=== PATIENT | female | born 1955 | race Caucasian/White ===

== ENCOUNTER 2021-04-06 16:55 | Emergency (ER) | payer BC ==
--- OUTSIDE RECORDS SUMMARY | 2021-04-06 16:58 | XMS REPORT | Continuity of Care Document ---
:1955 Author Organization [facility] t Address [address] [place] [address] Care Team Providers Name Role Phone Bam Hill MD Primary Care Physician BRIJESH Attending Clinician Unavailable Shonda STOCK Attending Clinician SHONDA Attending Clinician Unavailable Katelyn HANDLEY Attending Clinician Unavailable Payers Payer Name Policy Type Policy Number Effective Date Expiration Date S ource Problems Condition Condition Condition Status Onset Resolution Last Treating Co mments Source Name Details Category Date Date Treatment Clinician Date Atypical Atypical Disease Active Unive rs chest pain chest pain 8-27 it y of 00:00: [address] Obesity Obesity Disease Active 2016-03 Univers (BMI (BMI 1-03 ity of 30-39.9) 30-39.9) 00:00: [address] Atrial Atrial Disease Active 2016-03 Univers fibrillati fibrillati -03 it y of on with on with 00:: [place] RVR RVR [facility] Snores Snores Disease Active 2016-03 Univers 03 ity of 00:00: [address] TSH TSH Disease Active 2016-03 Univers elevation elevation 03-04 ity of 00:00: [address] HTN HTN Disease Active 2016-03 Univers (hypertens (hypertens -03 it y of ion) ion) 00:00: [address] PAF PAF Disease Active 2016-03 Univers (paroxysma (paroxysma 03-04 it y of l atrial l atrial 00:00: [place] fibrillati fibrillati 00 Me dical on) on) Branch Allergies, Adverse Reactions, Alerts Allergy Allergy Status Severity Reaction(s) Onset Inactive Treating Comm ents Source Name Type Date Date Clinician ATORVAST DRUG Active Other-Cmnt 2017-03 Univ ers ATIN INGREDI 2-06 ity of CALCIUM 00:00: [place] 00 Medical Branch Atorvast Propensi Active Other - See 2017-03 Sciatic Univers atin ty to comments 04-07 pain ity of Calcium adverse 00:00: right hip [place] reaction 00 Medical s Branch MORPHINE DRUG Active Hives 2016-03 Univers INGREDI 03-03 ity of 00:00: [place] 00 Medical Branch Morphine Propensi Active Hives 2016-03 Univer s ty to 03-03 ity of adverse 00:00: [place] reaction 00 Medical s Branch Social History Social Habit Start Date Stop Date Quantity Comments Source Exposure to Not sure [facility] SARS-CoV-2 [facility] (event) Branch Alcohol intake 2020-12-02 2020-12-02 Current [facility] 00:00:00 00:00:00 non-drinker of [facility] alcohol Branch (finding) Tobacco use and 2017-01-02 2017-01-02 Never used Universit y of exposure 00:00:00 00:00:00 [facility] Sex Ass[birth year] Universit y of 00:00:00 00:00:00 [facility] Smoking Status Start Date Stop Date Source Never smoker [facility] Medical Branch Medications Ordered Filled Start Stop Current Ordering Indication Dosage Frequency Signature Comments Components Source Medication Medication Date Date Medication? Clinician (SIG) Name Name Thyroid, 2020-03 Yes 90mg Take 90 mg Uni vers Pork, 0-03 by mouth ity of (ARMOUR 12:45: daily. [place] THYROID) 90 47 Medical mg tablet Branch Thyroid, 2020-03 Yes 90mg Take 90 mg Uni vers Pork, 0-03 by mouth ity of (ARMOUR 12:45: daily. [place] THYROID) 90 47 Medical mg tablet Branch carvedilol 2020-03 Yes 25mg Take 25 mg U nivers 12.5 mg 0-03 by mouth 2 ity of tablet 12:45: (two) [place] 21 times Medical daily with Branch meals. ramipril 10 2020-03 Yes 10mg Take 10 mg Univers mg capsule 0-03 by mouth 2 ity of 12:45: (two) [place] 21 times Medical daily. Branch carvedilol 2020-03 Yes 25mg Take 25 mg U nivers 12.5 mg 0-03 by mouth 2 ity of tablet 12:45: (two) [place] 21 times Medical daily with Branch meals. ramipril 10 2020-03 Yes 10mg Take 10 mg Univers mg capsule 0-03 by mouth 2 ity of 12:45: (two) [place] 21 times Medical daily. Branch cetirizine 2020-03 Yes [id number] 10mg Take 1 Univers 10 mg 0-03 tablet by ity of tablet 00:00: mouth [place] 00 daily. Medical Branch cetirizine 2020-03 Yes [id number] 10mg Take 1 Univers 10 mg 0-03 tablet by ity of tablet 00:00: mouth [place] 00 daily. 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 Medical Branch estradiol Yes 4ug Insert 4 Univ ers (IMVEXXY 8-28 mcg into ity of STARTER 15:21: vagina. [place] PACK) 4 mcg 16 Mondays Medic al InPk and Branch only. Vaginal suppositor y at night omeprazole Yes 20mg Take 20 mg U nivers 20 mg 8-28 by mouth ity of capsule 15:21: at [place] 16 bedtime. Medical Branch estradiol Yes 4ug Insert 4 Univ ers (IMVEXXY 8-28 mcg into ity of STARTER 15:21: vagina. [place] PACK) 4 mcg 16 Mondays Medic al InPk and Branch only. Vaginal suppositor y at night aspirin 325 2016-03 Yes 325mg Take 1 Uni vers mg tablet 1-03 tablet by ity o f 00:00: mouth [place] 00 daily. Medical Branch aspirin 325 2016-03 Yes 325mg Take 1 Uni vers mg tablet 1-03 tablet by ity o f 00:00: mouth [place] 00 daily. Medical [place] Immunizations Ordered Filled Immunization Date Status Comments Sourc e Immunization Name Name SARS-COV-2 COVID-19 2020-05-31 Completed Unive rsity of PFIZER VACCINE 00:00:00 [facility] SARS-COV-2 COVID-19 2020-05-31 Completed Unive rsity of PFIZER VACCINE 00:00:00 [facility] SARS-COV-2 COVID-19 2020-05-10 Completed Unive rsity of PFIZER VACCINE 00:00:00 [facility] SARS-COV-2 COVID-19 2020-05-10 Completed Unive rsity of PFIZER VACCINE 00:00:00 [facility] Vital Signs Vital Name Observation Time Observation Value Comments Source Systolic blood 2020-12-02 17:50:00 135 mm[Hg] Univer sity of pressure [facility] Diastolic blood 2020-12-02 17:50:00 81 mm[Hg] Unive rsity of pressure [facility] Heart rate 2020-12-02 17:44:00 60 /min [facility] Body temperature 2020-12-02 17:44:00 37.39 Dai [facility] Respiratory rate 2020-12-02 17:44:00 18 /min [facility] Body weight 2020-12-02 17:44:00 98.431 kg [facility] BMI 2020-12-02 17:44:00 41.00 kg/m2 [facility] Oxygen saturation in 2020-12-02 17:44:00 97 /min [facility] Arterial blood by [facility] Pulse oximetry Branch Procedures Procedure Date / Time Performed Performing Clinician Sournancy e POCT GRP A STREP 2020-12-02 17:57:00 Bjorn Hong [facility] (MOLECULAR) [facility] Encounters Start End Encounter Admission Attending Care Care Encounter Source Date/Time Date/Time Type Type Clinicians Facility Department ID 2021-03-14 2021-03-14 Outpatient [facility] [id number] [address] 00:00:00 00:00:[address] 2020-12-24 2020-12-24 RefBETZAIDA Pathak [id number] Univers 00:00:00 00:00:00 [facility] [id number] it y of [place] [id number] Mark as MIGUELANGEL?BLEA [id number] [address] OFFICE [facility] 2020-12-02 2020-12-02 [facility] [id number] Univers 12:28:05 13:15:32 Care [facility] [id number] it y of [place] [id number] Mark as Miugelangel?Blea [id number] [address] 2020-12-02 2020-12-02 [id number] Univers 13:00:00 13:00:00 [facility] 2020-09-27 2020-09-27 Emergency X EMMANUELLE, [facility] ERT [id number] Univers 02:54:00 02:54:00 SOHEILA [facility] 2020-02-20 2020-02-20 Outpatient [facility] [id number] [address] 00:00:00 00:00:[address] Results Test Description Test Time Test Comments Results Result Comments Source POCT GRP A STREP (MOLECULAR) 2020-12-02 18:07:00 Test Item Value Reference Range Interpretation Comme nts POCT GP A STREP (test code = neg Negative - Negative 54488-0) HECTOR (test code = HECTOR) accurate development and interpretation of all internal controls Lab Interpretation (test code = Normal [id number]) [facility] [id number] 10:10:59 - DIAG MAMM BILATERAL KRISTAL CAD DIGITALBILATERAL DIGITAL DIAGNOSTIC MAMMOGRAM 3D/2D WITH CAD: 10/04/2018CLINICAL: Dense breasts. Digital breast tomosynthesis was performed in addition to routine CC and MLO views. Current mammographic images were evaluated by either a Scayl M-Vu or a morphCARD ImageChecker CAD (computer aided detection system). Comparison is made to exams dated 10/01/2017 mammogram and09/29/2016 mammogram - [facility] The tissue of both breasts is heterogeneously dense. This may lower the sensitivity of mammography. No suspicious mass, architectural distortion, malignant type calcification, or lymph node abnormality detected. INCOMPLETE ASSESSMENT: ADDITIONAL IMAGING EVALUATION RECOMMENDEDBilateral ultrasound pending for additional evaluation. Resume annual screening mammography in one year. - BREAST ULTRASOUND BILATERALULTRASOUND OF BOTH BREASTS AND BOTH AXILLA: 10/04/2018Comparison is made to exams dated 10/01/2017 mammogram [facility]. Real-time ultrasound of both breasts and both axilla and clinical breast exam was performed. No abnormalities were seen sonographically in either axilla. Benign cysts and dilated ducts were seen. No solid masses were seen. IMPRESSION: BENIGN There is no sonographic evidence of malignancy. Patient has been informed that she has areas of dense breast tissue that could make it difficult to find a small cancer. A screening mammogram and supplemental ultrasound for dense breast tissue is recommended in 1 year.Cintia Sky M.D. dm/:10/06/2018 10:10:59 copy to: Swati Caraballo MD, ph: [phone], fax: [phone] Technologist: Anais Moss , [facility] DOTHANletter sent: BIRADS 1-2 Combo FU Letter Mammogram BI-RADS: 0 Indeterminate Ultrasound BI-RADS: 2 BenignDIAG MAMM BILATERAL KRISTAL CAD [id number] 10:10:59 - DIAG MAMM BILATERAL KRISTAL CAD DIGITALBILATERAL DIGITAL DIAGNOSTIC MAMMOGRAM 3D/2D WITH CAD: 10/04/2018CLINICAL: Dense breasts. Digital breast tomosynthesis was performed in addition to routine CC and MLO views. Current mammographic images were evaluated by either a Scayl M-Vu or a morphCARD ImageChecker CAD (computer aided detection system). Comparison is made to exams dated 10/01/2017 mammogram and09/29/2016 [facility]. The tissue of both breasts is heterogeneously dens e. This may lower the sensitivity of mammography. No suspicious mass, architectural distortion, malignant type calcification, or lymph node abnormality detected. INCOMPLETE ASSESSMENT: ADDITIONAL IMAGING EVALUATION RECOMMENDEDBilateral ultrasound pending for additional evaluation. Resume annual screening mammography in one year. - BREAST ULTRASOUND BILATERALULTRASOUND OF BOTH BREASTS AND BOTH AXILLA: 10/04/2018Comparison is made to exams dated 10/01/2017 mammogram and [facility] Real-time ultrasound of both breasts and both axilla and clinical breast exam was performed. No abnormalities were seen sonographically in either axilla. Benign cysts and dilated ducts were seen. No solid masses were seen. IMPRESSION: BENIGN There is no sonographic evidence of malignancy. Patient has been informed that she has areas of dense breast tissue that could make it di fficult to find a small cancer. A screening mammogram and supplemental ultrasound for dense breast tissue is recommended in 1 year.Cintia Sky M.D. dm/:10/06/2018 10:10:59 copy to: Swati García MD, ph: [phone], fax: [phone] Technologist: Anais Moss , [facility]- letter sent: BIRADS 1-2 Combo FU Letter Mammogram BI-RADS: 0 Indeterminate Ultrasound BI-RADS: 2 Benign
[2021-04-06 17:22] LABS: Urine Blood 3+ (Negative); Urine Glucose Negative (Negative); Urine Protein 3+ (Negative)
[2021-04-06] MEDS ORDERED: CEFTRIAXONE 1000 MG/VIAL ONE (17:36)
[2021-04-06] MEDS ORDERED: LIDOCAINE 2% MPF 5 ML VIAL ONE (17:38)
--- NOTE | 2021-04-06 17:38 | EDPHYS ---
Physician Documentation [facility] Name: Gloria Olivares Age: 65 yrs Sex: Female : 1955 Arrival Date: 04/06/2021 Time: 17:01 Bed 12 Private MD: ED Physician Joaquin Castaneda HPI: 04/06 17:30 This 65 yrs old Female presents to ER via Ambulatory with complaints of Low Back Pain, rn Pain With Urination, HEMATURIA. 17:30 Onset: The symptoms/episode began/occurred 4 day(s) ago. Modifying factors: The rn symptoms are alleviated by nothing, the symptoms are aggravated by urinating. Associated signs and symptoms: Pertinent positives: dysuria, hematuria, Pertinent negatives: fever, nausea, vomiting. Severity of symptoms: At their worst the symptoms were mild, in the emergency department the symptoms are unchanged. It is unknown whether or not the patient has had similar symptoms in the past. The patient has not recently seen a physician. Pt reports dysuria, hematuria, low back pain, feels like UTI. No fever. No vomiting. Denies hx of kidney stones. . Historical: - Allergies: 17:12 morphine; jh5 17:12 Lipitor; jh5 - PMHx: 17:12 Hypercholesterolemia; Hypertensive disorder; Hypothyroidism; jh5 - Immunization history:: Adult Immunizations up to date. - Social history:: Smoking status: Patient denies any tobacco usage or history of. - Family history:: not pertinent. - Hospitalizations: : No recent hospitalization is reported. ROS: 17:30 Constitutional: Negative for fever, chills, and weight loss, Eyes: Negative for injury, rn pain, redness, and discharge, Neck: Negative for injury, pain, and swelling, Cardiovascular: Negative for chest pain, palpitations, and edema, Respiratory: Negative for shortness of breath, cough, wheezing, and pleuritic chest pain, Abdomen/GI: Negative for nausea, vomiting, diarrhea, and constipation, Back: + for low back pain : + dysuria MS/Extremity: Negative for injury and deformity, Skin: Negative for injury, rash, and discoloration, Neuro: Negative for headache, weakness, numbness, tingling, and seizure. Exam: 17:30 Constitutional: This is a well developed, well nourished patient who is awake, alert, rn and in no acute distress. Head/Face: Normocephalic, atraumatic. Eyes: Periorbital areas with no swelling, redness, or edema. Cardiovascular: Regular rate and rhythm. No pulse deficits. Respiratory: No increased work of breathing, no retractions or nasal flaring. Abdomen/GI: soft, + mild suprapubic tenderness, no rebound Back: No spinal tenderness. No costovertebral tenderness. Full range of motion. Skin: Warm, dry MS/ Extremity: Pulses equal, no cyanosis. Neuro: Awake and alert, GCS 15 Vital Signs: 17:09 BP 150 / 83; Pulse 63; Resp 18; Temp 98.4; Pulse Ox 99% on R/A; Weight 93.89 kg; Height jh5 5 ft. 1 in. (154.94 cm); Pain 9/10; 17:09 Body Mass Index 39.11 (93.89 kg, 154.94 cm) jh5 MDM: 17:16 Patient medically screened. rn 17:30 Differential diagnosis: UTI, cystitis. 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 Counseling: I had a detailed discussion with the patient and/or guardian regarding: the historical points, exam findings, and any diagnostic results supporting the discharge/admit diagnosis, lab results, the need for outpatient follow up, to return to the emergency department if symptoms worsen or persist or if there are any questions or concerns that arise at home. Special discussion: I discussed with the patient/guardian in detail that at this point there is no indication for admission to the hospital. It is understood, however, that if the symptoms persist or worsen the patient needs to return immediately for re-evaluation. ED course: Pt appears very comfortable, no signs or symptoms of kidney stone, no hx of kidney stone, will dc home with abx. . 04/06 17:09 Order name: Urine Microscopic Only kb 04/06 17:16 Order name: Urine Culture rn 04/06 17:07 Order name: Urine Dipstick-Ancillary (obtain specimen); Complete Time: 17:24 [facility] 04/06 17:22 Order name: Urine Dipstick-Ancillary; Complete Time: 17:26 EDMS Administered Medications: 17:38 Drug: Rocephin (cefTRIAXone) 1 grams Route: IM; Site: left gluteus; jh5 Disposition Summary: 04/06/21 17:37 Discharge Ordered Location: Home rn Problem: new rn Symptoms: are unchanged rn Condition: Stable rn Diagnosis - UTI/ Urinary tract infection, site not specified rn - Acute cystitis with hematuria rn Followup: rn - With: Private Physician - When: As needed - Reason: Recheck today's complaints, Re-evaluation by your physician Discharge Instructions: - Discharge Summary Sheet rn - Dysuria rn - Hematuria, Adult rn - Urinary Tract Infection, Adult rn Forms: - Medication Reconciliation Form rn - Thank You Letter rn - Antibiotic filer metal patterns - Prescription Opioid Use rn Prescriptions: - cefpodoxime 100 mg Oral Tablet - take 2 tablets by ORAL route every 12 hours for 10 days take with food; 40 rn tablet; Refills: 0, Product Selection Permitted Signatures: Dispatcher [employer] EDJoaquin Ross MD MD rn Rees, Jessica RN RN 5 Corrections: (The following items were deleted from the chart) 17:33 17:30 Constitutional: Negative for fever, chills, and weight loss, Eyes: Negative for rn injury, pain, redness, and discharge, Neck: Negative for injury, pain, and swelling, Cardiovascular: Negative for chest pain, palpitations, and edema, Respiratory: Negative for shortness of breath, cough, wheezing, and pleuritic chest pain, Abdomen/GI: Negative for nausea, vomiting, diarrhea, and constipation, Back: + for low back pain : + dysuria MS/Extremity: Negative for injury and deformity, Skin: Negative for injury, rash, and discoloration, Neuro: Negative for headache, weakness, numbness, tingling, and seizure, rn 17:35 17:30 Constitutional: This is a well developed, well nourished patient who is awake, rn alert, and in no acute distress. rn
--- NOTE | 2021-04-06 17:38 | ER ---
Nurse's Notes [facility] Name: Gloria Olivares Age: 65 yrs Sex: Female : 1955 Arrival Date: 04/06/2021 Time: 17:01 Bed 12 Private MD: Diagnosis: UTI/ Urinary tract infection, site not specified;Acute cystitis with hematuria Presentation: 04/06 17:09 Chief complaint: Patient states: felt like i was getting a bladder infection on Thursday jh5 so I stopped drinking anything but water and took some cranberry; now I have the low back spasms, painful urination, and blood in my urine. Coronavirus screen: Vaccine status: Patient reports receiving the 2nd dose of the covid vaccine. Client denies travel out of the [place] in the last 14 days. Ebola Screen: Patient negative for fever greater than or equal to 101.5 degrees Fahrenheit, and additional compatible Ebola Virus Disease symptoms Patient denies exposure to infectious person. Patient denies travel to an Ebola-affected area in the 21 days before illness onset. Initial Sepsis Screen: Does the patient meet any 2 criteria? No. Patient's initial sepsis screen is negative. Does the patient have a suspected source of infection? No. Patient's initial sepsis screen is negative. Risk Assessment: Do you want to hurt yourself or someone else? Patient reports no desire to harm self or others. Onset of symptoms was March 2021. 17:09 Method Of Arrival: Ambulatory [facility] 17:09 Acuity: JACQUE 3 jh5 Triage Assessment: 17:12 General: Appears in no apparent distress. uncomfortable, obese, well groomed, well jh developed, Behavior is calm, cooperative, appropriate for age. Pain: Complains of pain in lower back pain. Historical: - Allergies: 17:12 morphine; 5 17:12 Lipitor; jh5 - PMHx: 17:12 Hypercholesterolemia; Hypertensive disorder; Hypothyroidism; 5 - Immunization history:: Adult Immunizations up to date. - Social history:: Smoking status: Patient denies any tobacco usage or history of. - Family history:: not pertinent. - Hospitalizations: : No recent hospitalization is reported. Vital Signs: 17:09 BP 150 / 83; Pulse 63; Resp 18; Temp 98.4; Pulse Ox 99% on R/A; Weight 93.89 kg; Height [facility] 5 ft. 1 in. (154.94 cm); Pain 9/10; 17:09 Body Mass Index 39.11 (93.89 kg, 154.94 cm) [facility] ED Course: 17:01 Patient arrived in ED. jj6 17:12 Triage completed. [facility] 17:12 Arm band placed on right wrist. [facility] 17:16 Joaquin Castaneda MD is Attending Physician. rn 17:24 Urine Culture Sent. 5 17:24 Urine Microscopic Only Sent. [facility] 17:34 Tara Feliciano, RN is Primary Nurse. [facility] Administered Medications: 17:38 Drug: Rocephin (cefTRIAXone) 1 grams Route: IM; Site: left gluteus; [facility] Outcome: 17:37 Discharge ordered by . rn 17:44 Patient left the ED. [facility] Signatures: Joaquin Castaneda MD MD rn Jeffries, Jennifer [facility] Tara Feliciano, TONYA RN [facility]
[2021-04-06 17:47] VITALS: BP 150/83; TEMP 98.4; O2SAT 99
[2021-04-06 18:02] LABS: Urine Bacteria >50 /HPF (<20)
== END 2021-04-06 17:44 | disposition home or self-care (01) ==
LOC: ER 16:55
DX: N30.01 Acute cystitis with hematuria (principal); Z88.5 Allergy status to narcotic agent; Z88.8 Allergy status to other drugs, medicaments and biological substances
CPT/HCPCS: 81003; 81015; 87077; 87086; 87088; 87186; 96372; 99283

== ENCOUNTER 2023-06-09 02:20 | Observation (INO) | payer OTHER ==
[2023-06-09 04:14] LABS: Absolute Basophils 0.1 K/uL (0-0.5); Absolute Eosinophils 0.2 K/uL (0-0.5); Absolute Lymphocytes (CBC) 3.9 K/uL (0.7-4.9); Absolute Monocytes 0.8 K/uL (0.1-1.3); Absolute Neutrophil 6.8 K/uL (1.8-8.0); Basophils % 0.5 % (0-1.3); Eosinophils % 1.5 % (0-4.4); Hematocrit 40.2 % (36.0-45.0); Hemoglobin 13.2 g/dL (12.0-15.0); MCH 27.2 pg (27.0-35.0); MCHC 32.9 g/dL (32.0-36.0); MCV 82.6 fL (80-100); MPV 9.1 fL (7.6-11.3); Monocytes % 6.5 % (3.3-12.3); Neutrophils % 58.5 % (41.7-73.7); Nucleated Red Blood Cells % 0.1 % (0-0); Platelets 310 thou/uL (152-406); RBC Red Blood Cell Count 4.86 M/uL (3.86-4.86); Red Cell Distribution Width 14.3 % (12.1-15.2)
[2023-06-09 04:37] LABS: Albumin 3.8 g/dL (3.4-5.0); Albumin/Globulin Ratio 1.1 (1.1-1.8); Anion Gap 7.1 mEq/L (5.0-15.0); Bilirubin Direct 0.2 mg/dL (0-0.2); Bilirubin Indirect, Calculated 0.5 mg/dL (0.2-0.8); Bilirubin Total 0.7 mg/dL (0.2-1.0); Globulin 3.6 g/dL (2.3-3.5); Magnesium 2.1 mg/dL (1.6-2.4); Potassium 4.1 mEq/L (3.5-5.1); Protein, Total 7.4 g/dL (6.4-8.2); Troponin High Sensitivity 5.3 pg/mL (<58.9)
[2023-06-09 04:58] LABS: Thyroid Stimulating Hormone 2.47 uIU/mL (0.358-3.740)
[2023-06-09 05:29] LABS: PT Prothrombin Time 11.6 SECONDS (9.5-12.5); PTT, Activated Partial Thromb 35.4 SECONDS (24.3-36.9); Protime INR 1.06
--- NOTE | 2023-06-09 06:51 | ER ---
Nurse's Notes [facility] Name: Gloria Olivares Age: 67 yrs Sex: Female : 1955 Arrival Date: 06/09/2023 Time: 02:20 Bed 8 Private MD: Diagnosis: Unstable angina Presentation: 06/08 02:45 Chief complaint: Patient states: woke up this morning and "I just didn't feel right". cm10 Pt reports that she took her blood pressure and it was elevated. Pt reports having chest tightness, pain in her jaw and some shortness of breath. Pt states that the chest tightness is to the center of her chest and does not radiate. Coronavirus screen: Client denies travel out of the [place] in the last 14 days. At this time, the client does not indicate any symptoms associated with coronavirus-19. Ebola Screen: Patient denies travel to an Ebola-affected area in the 21 days before illness onset. No symptoms or risks identified at this time. Initial Sepsis Screen: Does the patient meet any 2 criteria? No. Patient's initial sepsis screen is negative. Does the patient have a suspected source of infection? No. Patient's initial sepsis screen is negative. Risk Assessment: Do you want to hurt yourself or someone else? Patient reports no desire to harm self or others. Onset of symptoms was June 09, 2023. 02:45 Method Of Arrival: Ambulatory cm10 02:45 Acuity: JACQUE 2 cm10 Triage Assessment: 03:35 Respiratory: the patient has mild shortness of breath. km8 Historical: - Allergies: 02:47 Lipitor; cm10 02:47 Morphine; cm10 - PMHx: 02:47 Hypercholesterolemia; Hypertensive disorder; Hypothyroidism; Metabolic Syndrome; Sleep cm10 apnea; Diabetes mellitus; - Immunization history:: Adult Immunizations up to date. - Infectious Disease History:: Denies. - Social history:: Smoking status: Patient denies any tobacco usage or history of. - Family history:: not pertinent. Screenin:30 [facility] ED Fall Risk Assessment (Adult) History of falling in the last 3 months, km8 including since admission No falls in past 3 months (0 pts) Confusion or Disorientation No (0 pts) Intoxicated or Sedated No (0 pts) Impaired Gait No (0 pts) Mobility Assist Device Used No (0 pt) Altered Elimination No (0 pt) Score/Fall Risk Level 0 - 2 = Low Risk Oriented to surroundings, Maintained a safe environment, Educated pt \\T\\ family on fall prevention, incl call for assistance when getting out of bed, Assessed \\T\\ reinforced patient's understanding of fall precautions. Abuse screen: Denies threats or abuse. Denies injuries from another. Nutritional screening: No deficits noted. Tuberculosis screening: No symptoms or risk factors identified. Assessment: 03:30 General: Appears in no apparent distress. comfortable, Behavior is calm, cooperative, km8 appropriate for age. Pain: Complains of pain in chest Pain currently is 4 out of 10 on a pain scale. Quality of pain is described as dull, Pain began 2 hours ago. Neuro: Level of Consciousness is awake, alert, obeys commands, Oriented to person, place, time, situation. Cardiovascular: Reports chest pain, shortness of breath, Patient's skin is warm and dry. Rhythm is sinus bradycardia Chest pain is described as vague, quality is dull is located in anterior chest wall began 2 hours prior to arrival. Respiratory: Reports shortness of breath cough that is dry, Airway is patent Respiratory effort is even, unlabored, Respiratory pattern is regular, symmetrical, Breath sounds are clear bilaterally. GI: No signs and/or symptoms were reported involving the gastrointestinal system. : No signs and/or symptoms were reported regarding the genitourinary system. EENT: No signs and/or symptoms were reported regarding the EENT system. Derm: No signs and/or symptoms reported regarding the dermatologic system. Skin is intact, is healthy with good turgor, Skin is dry, Skin is pink, warm \\T\\ dry. normal, Skin temperature is warm. Musculoskeletal: No signs and/or symptoms reported regarding the musculoskeletal system. Range of motion: intact in all extremities. 04:29 Reassessment: Patient appears in no apparent distress at this time. No changes from km8 previously documented assessment. Patient and/or family updated on plan of care and expected duration. Pain level reassessed. Patient is alert, oriented x 3, equal unlabored respirations, skin warm/dry/pink. 05:41 Reassessment: Patient appears in no apparent distress at this time. No changes from km8 previously documented assessment. Patient and/or family updated on plan of care and expected duration. Pain level reassessed. Patient is alert, oriented x 3, equal unlabored respirations, skin warm/dry/pink. 07:44 Reassessment: Patient appears in no apparent distress at this time. No changes from ko1 previously documented assessment. Patient and/or family updated on plan of care and expected duration. Pain level reassessed. Patient is alert, oriented x 3, equal unlabored respirations, skin warm/dry/pink. Vital Signs: 02:45 BP 174 / 94; Pulse 56; Resp 18; Temp 98.6(O); Pulse Ox 99% on R/A; Weight 88.45 kg; cm10 Height 5 ft. 1 in. ; Pain 4/10; 04:00 BP 153 / 69; Pulse 57; Resp 16; Pulse Ox 97% on R/A; km8 04:30 BP 138 / 72; Pulse 53; Resp 16; Pulse Ox 97% on R/A; km8 05:00 BP 147 / 78; Pulse 52; Resp 18; Pulse Ox 95% on R/A; km8 05:30 BP 153 / 86; Pulse 48; Resp 14; Pulse Ox 98% on R/A; km8 06:00 BP 143 / 87; Pulse 48; Resp 16; Pulse Ox 96% on R/A; km8 02:45 Body Mass Index 36.84 (88.45 kg, 154.94 cm) cm10 02:45 Pain Scale: Adult cm10 [place] Coma Score: 03:30 Eye Response: spontaneous(4). Motor Response: obeys commands(6). Verbal Response: km8 oriented(5). Total: 15. 06:52 Eye Response: spontaneous(4). Motor Response: obeys commands(6). Verbal Response: sp4 oriented(5). Total: 15. ED Course: 02:24 Patient arrived in ED. ra3 02:47 Triage completed. cm10 02:48 Arm band placed on Patient placed in an exam room, on a stretcher. EKG completed in cm10 triage. Results shown to MD. 02:58 EKG done, by ED staff, reviewed by Raymon Barrios MD. cm10 03:06 Raymon Barrios MD is Attending Physician. sp4 03:21 Bridget Nielson, TONYA is Primary Nurse. km8 03:30 Patient has correct armband on for positive identification. Bed in low position. Call km8 light in reach. Side rails up X 1. quality assurance monitor on. Pulse ox on. NIBP on. Lights dimmed. Warm blanket given. 03:30 Initial lab(s) drawn, by ED staff, sent to lab. COVID swab sent to lab. Flu and/or RSV km8 swab sent to lab. Inserted saline lock: 20 gauge in left antecubital area, using aseptic technique. Blood collected. 03:36 T4 Free Sent. km8 03:36 TSH Sent. km8 03:36 Influenza Screen (a \\T\\ B) Sent. km8 03:36 COVID-19 SARS RT PCR Sent. km8 03:36 BMP Sent. km8 03:36 CBC with Diff Sent. km8 03:36 CPK Sent. km8 03:36 Hepatic Function Sent. km8 03:36 Lipase Sent. km8 03:36 Magnesium Sent. km8 03:36 NT PRO-BNP Sent. km8 03:36 PT-INR Sent. 8 03:36 Ptt, Activated Sent. km8 03:36 Troponin HS Sent. km8 05:41 No provider procedures requiring assistance completed. km8 06:22 Troponin HS Sent. km8 06:31 Troponin HS Sent. rv1 06:51 Joaquin Castaneda MD is Hospitalizing Provider. sp4 06:51 Hospitalizing Provider role handed off by Joaquin Castaneda MD sp4 06:51 Roberto Castaneda MD is Hospitalizing Provider. sp4 06:53 Chest Single View In Process Unspecified. EDMS 07:03 Report given to TONYA Sultana. km8 07:44 Assisted to bathroom. ko1 07:44 Provided Education on: na. ko1 07:44 Patient admitted, IV remains in place. ko1 Administered Medications: No medications were administered Medication: 03:30 VIS not applicable for this client. km8 Outcome: 06:51 Decision to Hospitalize by Provider. sp4 07:44 Admitted to ER Hold. Please see [facility] for further documentation. ko1 07:44 Condition: stable 07:44 Instructed on the need for admit, 08:36 Patient left the ED. ko1 Signatures: Dispatcher [employer] EDMS Kayy Romeo RN RN ko1 Kimberly Marques rv1 Raymon Barrios MD MD sp4 Miranda Brar, RN RN cm10 Bridget Nielson, TONYA RN km8 Kaitlin Randhawa ra3
--- NOTE | 2023-06-09 06:51 | EDPHYS ---
Physician Documentation [facility] Name: Gloria Olivares Age: 67 yrs Sex: Female : 1955 Arrival Date: 06/09/2023 Time: 02:20 Bed 8 Private MD: ED Physician Raymon Barrios HPI: 06/08 03:06 This 67 yrs old Female presents to ER via Ambulatory with complaints of Shortness Of sp4 Breath, Headache, High Blood Pressure. 06:52 67-year-old female, generalized weakness elevated blood pressure headache shortness of sp4 breath and orthopnea also chest discomfort. . Historical: - Allergies: 02:47 Lipitor; cm10 02:47 Morphine; cm10 - PMHx: 02:47 Hypercholesterolemia; Hypertensive disorder; Hypothyroidism; Metabolic Syndrome; Sleep cm10 apnea; Diabetes mellitus; - Immunization history:: Adult Immunizations up to date. - Infectious Disease History:: Denies. - Social history:: Smoking status: Patient denies any tobacco usage or history of. - Family history:: not pertinent. ROS: 06:52 Constitutional: Positive for dyspnea, generalized weakness, chest discomfort, headache, sp4 elevated blood pressure Eyes: Negative for injury, pain, redness, and discharge, 06:52 All other systems are negative, Exam: 06:52 Constitutional: This is a well developed, well nourished patient who is awake, alert, sp4 and in no acute distress. Head/Face: Normocephalic, atraumatic. Eyes: Pupils equal round and reactive to light, extra-ocular motions intact. Lids and lashes normal. Conjunctiva and sclera are not injected. Cornea within normal limits. Periorbital areas with no swelling, redness, or edema. ENT: Nares patent. No nasal discharge, no septal abnormalities noted. Tympanic membranes are normal and external auditory canals are clear. Oropharynx with no redness, swelling, or masses, exudates, or evidence of obstruction, uvula midline. Mucous membranes moist. Neck: Trachea midline, no thyromegaly or masses palpated, and no cervical lymphadenopathy. Supple, full range of motion without nuchal rigidity, or vertebral point tenderness. Chest/axilla: Normal chest wall appearance and motion. Nontender with no deformity. No lesions are appreciated. Cardiovascular: Regular rate and rhythm with a normal S1 and S2. No gallops, murmurs, or rubs. Normal PMI, no JVD. No pulse deficits. Respiratory: Lungs have equal breath sounds bilaterally, clear to auscultation and percussion. No rales, rhonchi or wheezes noted. No increased work of breathing, no retractions or nasal flaring. Abdomen/GI: Soft, with normal bowel sounds. No distension or tympany. No guarding or rebound. No evidence of tenderness throughout. Back: No spinal tenderness. No costovertebral tenderness. Skin: Warm, dry with normal turgor. Normal color with no rashes, no lesions, and no evidence of cellulitis. MS/ Extremity: Pulses equal, no cyanosis. Neurovascular intact. Full, normal range of motion. Neuro: Awake and alert, GCS 15, oriented to person, place, time, and situation. Cranial nerves II-XII grossly intact. Motor strength 5/5 in all extremities. Sensory grossly intact. Psych: Awake, alert, with orientation to person, place and time. Behavior, mood, and affect are within normal limits 06:55 ECG was reviewed by the Attending Physician. EKG time 0 254, sinus bradycardia rate 54 sp4 Vital Signs: 02:45 BP 174 / 94; Pulse 56; Resp 18; Temp 98.6(O); Pulse Ox 99% on R/A; Weight 88.45 kg; cm10 Height 5 ft. 1 in. ; Pain 4/10; 04:00 BP 153 / 69; Pulse 57; Resp 16; Pulse Ox 97% on R/A; km8 04:30 BP 138 / 72; Pulse 53; Resp 16; Pulse Ox 97% on R/A; km8 05:00 BP 147 / 78; Pulse 52; Resp 18; Pulse Ox 95% on R/A; km8 05:30 BP 153 / 86; Pulse 48; Resp 14; Pulse Ox 98% on R/A; km8 06:00 BP 143 / 87; Pulse 48; Resp 16; Pulse Ox 96% on R/A; km8 02:45 Body Mass Index 36.84 (88.45 kg, 154.94 cm) cm10 02:45 Pain Scale: Adult cm10 Sergio Coma Score: 03:30 Eye Response: spontaneous(4). Motor Response: obeys commands(6). Verbal Response: km8 oriented(5). Total: 15. 06:52 Eye Response: spontaneous(4). Motor Response: obeys commands(6). Verbal Response: sp4 oriented(5). Total: 15. MDM: 03:07 Patient medically screened. sp4 06:52 Scoring Tools HEART Score: History: Moderately Suspicious (1) ECG: Normal (0) Age: > or sp4 = 65 years (2) Risk Factors: > or = 3 Risks factors for Atherosclerotic disease (2) Troponin: < or = 1 x Normal limit (0) Total Score = 5. ED course: Patient warrants admission for further assessment and cardiology consult. 06:55 Differential diagnosis: Anemia Anxiety Reaction asthma, Bronchitis CHF exacerbation, sp4 Chronic Obstructive Pulmonary Disease Myocardial Infarction. Data reviewed: vital signs, nurses notes, old medical records, lab test result(s), EKG, radiologic studies. Consideration of Admission/Observation Patient was admitted/placed on observation. Escalation of care including admission/observation considered. Management of patient was discussed with the following: Hospitalist: Discussed with admission team. ED course: Condition is stable. 06/08 03:06 Order name: BMP; Complete Time: 06:26 sp4 06/08 03:06 Order name: CBC with Diff; Complete Time: 06:26 sp4 06/08 03:06 Order name: CPK; Complete Time: 06:26 4 06/08 03:06 Order name: Hepatic Function; Complete Time: 06:26 sp4 06/08 03:06 Order name: Lipase; Complete Time: 06:26 sp4 06/08 03:06 Order name: Magnesium; Complete Time: 06:26 4 06/08 03:06 Order name: NT PRO-BNP; Complete Time: 06:26 sp4 06/08 03:06 Order name: PT-INR; Complete Time: 06:26 sp4 06/08 03:06 Order name: Ptt, Activated; Complete Time: 06:26 sp4 06/08 03:06 Order name: Troponin HS; Complete Time: 06:26 sp4 06/08 03:28 Order name: COVID-19 SARS RT PCR; Complete Time: 06:26 sp4 06/08 03:28 Order name: Influenza Screen (a \T\ B); Complete Time: 06:26 sp4 06/08 03:28 Order name: TSH; Complete Time: 06:26 sp4 06/08 03:28 Order name: T4 Free; Complete Time: 06:26 sp4 06/08 06:18 Order name: Troponin HS km8 06/08 07:33 Order name: Troponin High Sensitivity EDMS 06/08 07:33 Order name: Troponin High Sensitivity EDMS 06/08 07:33 Order name: Troponin High Sensitivity EDMS 06/08 06:49 Order name: Chest Single View EDMS 06/08 07:33 Order name: Echo with Doppler EDMS 06/08 03:06 Order name: Cardiac monitoring; Complete Time: 03:36 sp4 06/08 03:06 Order name: EKG - Nurse/Tech; Complete Time: 03:12 sp4 06/08 03:06 Order name: IV Saline Lock; Complete Time: 03:36 sp4 06/08 03:06 Order name: Labs collected and sent; Complete Time: 03:36 sp4 06/08 03:06 Order name: O2 Per Protocol; Complete Time: 03:36 sp4 06/08 03:06 Order name: O2 Sat Monitoring; Complete Time: 03:36 sp4 EC:55 Rate is 54 beats/min. Rhythm is regular, Sinus bradycardia. QRS [place] is Normal. ND sp4 interval is normal. QRS interval is normal. QT interval is normal. No Q waves. T waves are Normal. No ST changes noted. Clinical impression: No evidence of ischemia. Interpreted by me. Reviewed by me. Administered Medications: No medications were administered Disposition Summary: 06/09/23 06:51 Hospitalization Ordered Notes: Hospitalization Status: Observation sp4 Provider: Roberto Castaneda Location: Telemetry/MedSurg (observation) sp4 Condition: Stable sp4 Problem: new sp4 Symptoms: have improved sp4 Bed/Room Type: Standard sp4 Room Assignment: 401(06/09/23 07:47) bd Diagnosis - Unstable angina sp4 Forms: - Medication Reconciliation Form sp4 - SBAR form sp4 - Leadership Thank You Letter sp4 Signatures: Dispatcher [employer] Keli Barros Sergey, MD MD sp4 Miranda Brar RN RN cm10 Corrections: (The following items were deleted from the chart) 03:07 03:07 BASIC METABOLIC PANEL+C.LAB.BRZ ordered. EDMS EDMS 03:07 03:07 CBC+H.LAB.BRZ ordered. EDMS EDMS 03:07 03:07 CREATINE PHOSPHOKINASE+C.LAB.BRZ ordered. EDMS EDMS 03:07 03:07 HEPATIC FUNCTION+C.LAB.BRZ ordered. EDMS EDMS 03:07 03:07 LIPASE+C.LAB.BRZ ordered. EDMS EDMS 03:07 03:07 MAGNESIUM+C.LAB.BRZ ordered. EDMS EDMS 03:07 03:07 PROBNP+C.LAB.BRZ ordered. EDMS EDMS 03:07 03:07 PROTIME (+INR)+COAG.LAB.BRZ ordered. EDMS EDMS 03:07 03:07 PTT, ACTIVATED+COAG.LAB.BRZ ordered. EDMS EDMS 03:07 03:07 Troponin High Sensitivity+C.LAB.BRZ ordered. EDMS EDMS 03:07 03:07 Chest Single View+RAD.RAD.BRZ ordered. EDMS EDMS 06:19 06:19 Troponin High Sensitivity+C.LAB.BRZ ordered. EDMS EDMS 07:47 06:51 sp4 bd
[2023-06-09] MEDS: ramipriL 5 MG CAP PO SCH (11:49)
[2023-06-09] MEDS: ENOXAPARIN 40 MG/0.4 ML SQ SCH (11:49)
[2023-06-09] MEDS: ASPIRIN EC 81 MG TAB PO SCH (11:49)
[2023-06-09 12:01] VITALS: O2SAT 100; BMI 36.8
--- NOTE | 2023-06-09 16:15 | EKG ---
Test Date: 2023-06-09 Test Time: 02:54:00 Sludge Filtration Attendant: DAMIEN MEASUREMENT RESULTS: Intervals: Rate: 54 AK: 156 QRSD: 76 QT: 418 QTc: 396 [place]: P: 35 AK: 156 QRS: -4 T: 58 INTERPRETIVE STATEMENTS: Sinus bradycardia Otherwise normal ECG Compared to ECG 12/31/1998 13:52:00 Sinus rhythm no longer present Electronically Signed On 06-09-23 16:13:57 CDT by Nikhil Khanna
--- NOTE | 2023-06-09 16:29 | P.HP ---
Certification for Inpatient Patient admitted to: Observation With expected LOS: <2 Midnights Patient will require the following post-hospital care: None Practitioner: I am a practitioner with admitting privileges, knowledge of patient current condition, hospital course, and medical plan of care. Services: Services provided to patient in accordance with Admission requirements found in Title 42 Section 412.3 of the Code of Federal Regulations Patient History Date of Service: 06/09/23 Reason for admission: Chest pain History of Present Illness: 67-year-old female with history of hypertension, hyperlipidemia, hypothyroidism, GABRIELA and [id number] diabetes presents to the emergency department with chief complaint of chest pain. She reports substernal pressure with occasional associated dizziness that has been going on the past couple of days. She was evaluated in the emergency department her initial high-sensitivity troponin was negative at 5.3 EKG without STEMI criteria. ED provider wishes to admit patient under observation for ACS rule out. Allergies atorvastatin calcium [From Lipitor] Allergy (Verified 01/09/15 14:22) sciatica problems morphine Allergy (Verified 01/09/15 14:22) Hives Home Medications: Aspirin [Aspirin EC 81 MG] 81 mg PO DAILY 12/28/14 Cyanocobalamin [Vitamin B-12*] 1,000 mcg PO DAILY 12/28/14 Omeprazole [Prilosec] 20 mg PO DAILY 12/28/14 Ramipril [Altace] 10 mg PO BID 12/28/14 Levofloxacin [Levaquin] 500 mg PO DAILY #9 tablet 02/01/15 Thyroid,Pork [Thyroid] 90 mg PO DAILY 06/09/23 - Past Medical/Surgical History Has patient received pneumonia vaccine in the past: Yes Diabetic: No -: HTN -: HYPOTHROIDISM -: ACID REFLUX -: Osteoarthritis -: Diabetes mellitus type [id number] -: Hyperlipidemia -: HYSTERECTOMY -: TONSILLECTOMY -: MARIA VICTORIA -: C-SECTIONS X 2 Psychosocial/ Personal History: Lives at home with her family, 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 moist/pink, EOMI, Sclerae nonicteric Neck: Supple, 2+ carotid pulse no bruit, No LAD, Without JVD or thyroid abnormality Respiratory: Clear to auscultation bilaterally, Normal air movement Cardiovascular: Regular rate/rhythm, Normal S1 S2 Gastrointestinal: Normal bowel sounds, No tenderness Musculoskeletal: No tenderness Integumentary: No rashes Neurological: Normal speech, Normal strength at 5/5 x4 extr, Normal tone, Normal affect - Studies Laboratory Data (last 24 hrs) 06/09/23 06/09/23 06/09/23 03:31 03:31 03:31 WBC 11.70 H Hgb 13.2 Hct 40.2 Plt Count 310 PT 11.6 INR 1.06 APTT 35.4 Sodium 138 Potassium 4.1 BUN 17 Creatinine 0.95 Glucose 158 H Magnesium 2.1 Total Bilirubin 0.7 AST 16 ALT 28 Alkaline Phosphatase 95 Lipase 87 H Microbiology Data (last 24 hrs): 06/09/23 03:31 Nasopharnyx Influenza Type A Antigen Screen - Final 06/09/23 03:31 Nasopharnyx Influenza Type B Antigen Screen - Final Assessment and Plan - Plan Assessment: Chest pain rule out ACS Hypertension Hyperlipidemia Hypothyroidism Diabetes mellitus type [id number] GABRIELA Plan: Chest pain rule out ACS Trend troponins, monitor on telemetry, cardiology consult Echocardiogram ordered Daily aspirin Appreciate further input from cardiology Stress test several years ago, has never had a heart catheterization Hypertension Hyperlipidemia Hypothyroidism Continue home medications Diabetes mellitus type [id number] Used to be on metformin but stopped it due to GI symptoms ACHS Accu-Chek, sinus counseling A1c morning GABRIELA CPAP at night as needed DVT PPX: Lovenox Code status: Full Discharge Plan: Home Plan to discharge in: 24 Hours - Advance Directives Does patient have a Living Will: No Does patient have a Durable POA for Healthcare: No - Code Status/Comfort Care Code Status Assessed: Yes (Full code) Critical Care: No Time Spent Managing Pts Care (In Minutes): 70
[2023-06-09 16:37] VITALS: BP 128/58; TEMP 98.7
[2023-06-09 16:42] LABS: Specific Gravity 1.016 (1.005-1.030); Urine Bilirubin NEGATIVE (Negative); Urine Blood Negative (Negative); Urine Clarity Clear (Clear); Urine Color Light-Yellow (Yellow); Urine Glucose NEGATIVE (Negative); Urine Ketones NEGATIVE (Negative); Urine Microscopic Reflex YN NO UMIC; Urine Nitrite NEGATIVE (Negative); Urine Protein NEGATIVE (Negative); Urine Urobilinogen Normal (Normal)
[2023-06-09] MEDS ORDERED: carvediloL 25 MG TAB PO SCH (18:00)
--- NOTE | 2023-06-09 19:57 | CON ---
Date of Consultation: 06/09/2023 Reason For Consultation: Chest pain. History Of Present Illness: A 67-year-old female, history of hypertension, dyslipidemia, obstructive sleep apnea, obesity, diabetes, presented with chest discomfort. She said it is not really a pain, but it is just a congestion feeling. She has been coughing, but there is no exertional chest pain or chest pressure. Cardiac enzymes have been negative and she follows up with a oil fire specialist up in [facility]. Past Medical History: As outlined above in the HPI. Medications: Refer reconciliation sheet for detailed list. Allergies: ATORVASTATIN, MORPHINE. Family History: No premature coronary artery disease or cancer. Social History: She does not smoke or drink. Does not use any drugs. Review of Systems: All systems reviewed and they were negative except as mentioned in HPI. Physical Examination: Vital Signs: Reviewed. Head and Neck: Pupils are equal, reactive to light. Intact eye movements. No JVD. No cervical lym phadenopathy. Neck is supple. Thyroid is not enlarged. Lungs: Clear to auscultation bilaterally. No rhonchi, rales, or crackles. No accessory muscle use. Heart: Regular rate and rhythm. No extra sounds. Abdomen: Soft, nontender. Bowel sounds positive. No organomegaly. No masses or hernia. No rigidi ty or rebound. Extremities: No edema, clubbing, or cyanosis. Intact pulses. Skin: No rash or nodule. Neurologic: Alert, awake, oriented x3. No acute focal deficits appreciated. Investigations: Labs were reviewed. Cardiac enzymes are negative and her BUN is 17, creatinine 0.95 . Assessment/recommendation: 1.Chest pain with negative cardiac enzymes, very typical pain from cardiology standpoint. The patie nt can be released. Follow up by oil fire specialist for stress test. 2.Dyslipidemia, stable. Continue statin. 3.Hypertension. Blood pressure is controlled. Cardiology will sign off and follow up with her prim anm oil fire specialist as an outpatient as outlined above. SR/MODL Voice ID: [id number] Report ID: [id number]
--- NOTE | 2023-06-09 20:46 | RAD REPORT ---
EXAM DESCRIPTION: RAD - Chest Single View - 06/09/2023 6:51 am CLINICAL HISTORY: Chest pain COMPARISON: None FINDINGS: Due to technical difficulty the exam could not be read until now Lungs appear clear of acute infiltrate. Heart is mildly enlarged IMPRESSION: No acute abnormality displayed
[2023-06-10] MEDS ORDERED: THYROID 30 MG TAB PO SCH (06:00)
--- NOTE | 2023-06-10 07:00 | ECHO ---
HEIGHT: 5 ft 1 in WEIGHT: 195 lb 0 oz DATE OF STUDY: 06/09/[address]: Johnny oGyal NP 2-DIMENSIONAL: YES M.MODE: YES DOPPLER: YES COLOR FLOW: YES TDS: PORTABLE: YES DEFINITY: BUBBLE STUDY: DIAGNOSIS: CHEST PAIN CARDIAC HISTORY: CATHERIZATION: SURGERY: PROSTHETIC VALVE: PACEMAKER: MEASUREMENTS (cm) DIASTOLIC (NORMALS) SYSTOLIC (NORMALS) IVSd 0.9 (0.6-1.2) LA Diam 3.8 (1.9-4.0) LVEF 79% LVIDd 4.1 (3.5-5.7) LVIDs 2.2 (2.0-3.5) %FS 47% LVPWd 1.0 (0.6-1.2) Ao Diam 2.9 (2.0-3.7) 2 DIMENSIONAL ASSESSMENT: RIGHT ATRIUM: NORMAL LEFT ATRIUM: NORMAL RIGHT VENTRICLE: NORMAL LEFT VENTRICLE: NORMAL TRICUSPID VALVE: MILD TRICUSPID REGURGITATION MITRAL VALVE: NORMAL PULMONIC VALVE: NORMAL AORTIC VALVE: NORMAL PERICARDIAL EFFUSION: NONE AORTIC ROOT: NORMAL LEFT VENTRICULAR WALL MOTION: NORMAL DOPPLER/COLOR FLOW: SEE BELOW COMMENTS: 1. NORMAL LEFT VENTRICULAR EJECTION FRACTION 60-65% 2. NORMAL WALL MOTION 3. NORMAL DIASTOLIC FUNCTION 4. MILD TRICUSPID REGURGITATION TECHNOLOGIST: JENNIFER MOON
[2023-06-10] MEDS ORDERED: PANTOPRAZOLE 40MG TABLET PO SCH (09:00)
[2023-06-10] MEDS ORDERED: THYROID PORK 90 MG PO SCH (09:00)
[2023-06-10] MEDS ORDERED: CYANOCOBALAMIN 1,000 MCG TAB PO SCH (09:00)
[2023-06-10] MEDS ORDERED: HOME MED 1 EA UNK (Omeprazole [Prilosec] 20 MG Capsule.Dr) PO SCH (09:00)
[2023-06-10] MEDS ORDERED: ASPIRIN EC 81 MG TAB PO SCH (09:00)
== END 2023-06-09 19:00 | disposition home or self-care (01) ==
LOC: ER 02:20 → ERHOLD 07:28 → 4TH 08:10
PROVIDERS: ADMIT Hospitalist; ATTEND Hospitalist
DX: R07.9 Chest pain, unspecified (principal); I10 Essential (primary) hypertension; E78.5 Hyperlipidemia, unspecified; E03.9 Hypothyroidism, unspecified; G47.33 Obstructive sleep apnea (adult) (pediatric); E11.9 Type 2 diabetes mellitus without complications; E78.00 Pure hypercholesterolemia, unspecified; Z88.5 Allergy status to narcotic agent; Z88.8 Allergy status to other drugs, medicaments and biological substances; Z11.52 Encounter for screening for COVID-19
CPT/HCPCS: 93005; 93306; 85025; 80048; 36415; 83735; 82550; 85610; 82947 ×2; 80076; 85730; 84443; 81003; 84484 ×4; 84439; 83690; 83880; 87635; 87804 ×2; 71045; J1650; G0378

== ENCOUNTER 2023-10-23 19:09 | Inpatient (IN) | payer OTHER ==
[2023-10-23] MEDS ORDERED: METOPROLOL TARTRATE 5 MG/5 ML INJ IV ONE (20:06)
[2023-10-23 20:10] LABS: Absolute Basophils 0.1 K/uL (0-0.5); Absolute Eosinophils 0.1 K/uL (0-0.5); Absolute Lymphocytes (CBC) 4.5 K/uL (0.7-4.9); Absolute Monocytes 0.7 K/uL (0.1-1.3); Absolute Neutrophil 3.8 K/uL (1.8-8.0); Basophils % 0.6 % (0-1.3); Eosinophils % 1.2 % (0-4.4); Hematocrit 41.8 % (36.0-45.0); Hemoglobin 13.8 g/dL (12.0-15.0); MCV 81.8 fL (80-100); MPV 8.4 fL (7.6-11.3); Monocytes % 7.4 % (3.3-12.3); Neutrophils % 41.8 % (41.7-73.7); Nucleated Red Blood Cells % 0.2 % (0-0); Platelets 314 thou/uL (152-406); Red Cell Distribution Width 15.6 % (12.1-15.2)
[2023-10-23 20:13] LABS: PT Prothrombin Time 12.1 SECONDS (9.4-12.5); Protime INR 1.08
--- NOTE | 2023-10-23 20:20 | RAD REPORT ---
EXAM DESCRIPTION: RAD - Chest Single View - 10/23/2023 8:11 pm CLINICAL HISTORY: CHEST PAIN Chest pain. COMPARISON: <Comparisons> FINDINGS: Portable technique limits examination quality. The lungs are grossly clear. The heart is mildly enlarged in size. No displaced fractures. IMPRESSION: No acute intrathoracic process suspected.
[2023-10-23 21:06] LABS: ALT/SGPT 26 U/L (13-56); AST/SGOT 17 U/L (15-37); Albumin 3.8 g/dL (3.4-5.0); Albumin/Globulin Ratio 1.1 (1.1-1.8); BUN Blood Urea Nitrogen 19 mg/dL (7-18); Bicarbonate 25 mEq/L (21-32); Bilirubin Direct < 0.2 mg/dL (0-0.2); Bilirubin Indirect, Calculated 0.4 mg/dL (0.2-0.8); Bilirubin Total 0.6 mg/dL (0.2-1.0); Globulin 3.4 g/dL (2.3-3.5); Glomerular Filtration Rate 73 ml/min (=/>90); Glucose Level 112 mg/dL (74-106); Magnesium 2.2 mg/dL (1.6-2.4); NT PRO-BNP 686 pg/mL (<125); Protein, Total 7.2 g/dL (6.4-8.2); Troponin High Sensitivity 16.3 pg/mL (<58.9)
[2023-10-23 21:11] LABS: Anion Gap 11.7 mEq/L (5.0-15.0)
[2023-10-23 21:13] LABS: Sodium Level 140 mEq/L (138-146)
[2023-10-23 21:14] LABS: Potassium 4.7 mEq/L (3.5-4.9)
[2023-10-23] MEDS ORDERED: MAGNESIUM SULFATE 1 gm IVPB 1 GM/100 ML BAG IV ONE (21:28)
[2023-10-23] MEDS ORDERED: NA CHLORIDE 0.9% 1,000 ML ONE (21:28)
--- NOTE | 2023-10-23 21:29 | ER ---
Nurse's Notes [facility] Name: Gloria Olivares Age: 67 yrs Sex: Female : 1955 Arrival Date: 10/23/2023 Time: 19:09 Bed 8 Private MD: Diagnosis: Unspecified atrial fibrillation-new onset Presentation: 10/22 19:34 Chief complaint:. Chief complaint: Patient states: sitting at desk and started to feel tm6 pressure in ears and neck, and stuffy in chest, nausea. Started at 1500. Coronavirus screen: Vaccine status: Patient reports receiving the 2nd dose of the covid vaccine. Ebola Screen: Patient negative for fever greater than or equal to 101.5 degrees Fahrenheit, and additional compatible Ebola Virus Disease symptoms Patient denies exposure to infectious person. Patient denies travel to an Ebola-affected area in the 21 days before illness onset. No symptoms or risks identified at this time. Initial Sepsis Screen: Does the patient meet any 2 criteria? HR > 90 bpm. Does the patient have a suspected source of infection? No. Patient's initial sepsis screen is negative. Risk Assessment: Do you want to hurt yourself or someone else? Patient reports no desire to harm self or others. Onset of symptoms was October 23, 2023 at 15:00. 19:34 Method Of Arrival: Ambulatory tm6 19:34 Acuity: JACQUE 3 tm6 Triage Assessment: 19:52 General: Appears in no apparent distress. Behavior is calm, cooperative. Pain: Denies tm6 pain. EENT: Reports stuffiness in ears. Neuro: Level of Consciousness is awake, alert, obeys commands, Oriented to person, place, time, situation. Cardiovascular: Denies chest pain, Patient's skin is warm and dry. Rhythm is atrial fibrillation with rapid ventricular response. Respiratory: Airway is patent Respiratory effort is even, unlabored, Respiratory pattern is regular, symmetrical. GI: No signs and/or symptoms were reported involving the gastrointestinal system. Abdomen is round non-distended. : No signs and/or symptoms were reported regarding the genitourinary system. Derm: No signs and/or symptoms reported regarding the dermatologic system. Musculoskeletal: No signs and/or symptoms reported regarding the musculoskeletal system. Historical: - Allergies: 19:36 Morphine; tm6 19:36 Lipitor; tm6 - PMHx: 19:36 Diabetes mellitus; Hypercholesterolemia; Hypertensive disorder; Hypothyroidism; Sleep tm6 apnea; - PSHx: 19:36 Total abdominal hysterectomy; Cholecystectomy; section; tm6 - Immunization history:: Client reports receiving the 2nd dose of the Covid vaccine. - Infectious Disease History:: Denies. - Social history:: Smoking status: Patient denies any tobacco usage or history of. Patient/guardian denies using alcohol. Screenin:10 [facility] ED Fall Risk Assessment (Adult) History of falling in the last 3 months, iw including since admission No falls in past 3 months (0 pts) Confusion or Disorientation No (0 pts) Intoxicated or Sedated No (0 pts) Impaired Gait No (0 pts) Mobility Assist Device Used No (0 pt) Altered Elimination No (0 pt) Score/Fall Risk Level 0 - 2 = Low Risk Oriented to surroundings, Maintained a safe environment, Educated pt \T\ family on fall prevention, incl call for assistance when getting out of bed, Assessed \T\ reinforced patient's understanding of fall precautions, Hourly rounding (assess needs \T\ fall precautionary measures) done, Used ambulatory aids as needed (educated on \T\ assisted with), Used gait belt as appropriate. Abuse screen: Denies threats or abuse. Nutritional screening: No deficits noted. Tuberculosis screening: No symptoms or risk factors identified. Assessment: 20:10 General: Appears in no apparent distress. comfortable, Behavior is calm, cooperative, iw appropriate for age. Pain: Denies pain. Neuro: No deficits noted. Level of Consciousness is awake, alert, obeys commands, Oriented to person, place, time, situation, Appropriate for age. Cardiovascular: Reports palpitations, Heart tones S1 S2 present Capillary refill < 3 seconds Patient's skin is warm and dry. Rhythm is atrial fibrillation with rapid ventricular response. Respiratory: Airway is patent Respiratory effort is even, unlabored, Respiratory pattern is regular, symmetrical, Breath sounds are clear bilaterally. GI: No signs and/or symptoms were reported involving the gastrointestinal system. : No signs and/or symptoms were reported regarding the genitourinary system. EENT: No signs and/or symptoms were reported regarding the EENT system. Derm: No signs and/or symptoms reported regarding the dermatologic system. Musculoskeletal: No signs and/or symptoms reported regarding the musculoskeletal system. 21:14 Reassessment: Patient appears in no apparent distress at this time. Patient and/or iw family updated on plan of care and expected duration. Pain level reassessed. Patient is alert, oriented x 3, equal unlabored respirations, skin warm/dry/pink. Patient denies pain at this time. Patient states feeling better. Patient states symptoms have improved. 22:39 Reassessment: Patient appears in no apparent distress at this time. No changes from bm8 previously documented assessment. Patient and/or family updated on plan of care and expected duration. Pain level reassessed. Patient is alert, oriented x 3, equal unlabored respirations, skin warm/dry/pink. Patient denies pain at this time. Patient states feeling better. Patient states symptoms have improved. Vital Signs: 19:33 BP 157 / 119; Pulse 128; Resp 19; Temp 98.7(O); Pulse Ox 99% on R/A; Weight 88.45 kg; tm6 Height 5 ft. 1 in. ; Pain 0/10; 19:34 Pulse 105; tm6 20:10 BP 153 / 114; Pulse 84; Resp 20; Temp 98.7; Pulse Ox 98% ; Pain 0/10; iw 21:14 BP 126 / 93; Pulse 80; Resp 20; Temp 98.7; Pulse Ox 97% ; Pain 0/10; iw 22:39 BP 126 / 80; Pulse 78; Resp 18; Temp 98.7; Pulse Ox 98% ; Pain 0/10; bm8 19:33 Body Mass Index 36.84 (88.45 kg, 154.94 cm) tm6 19:33 Pain Scale: Adult tm6 20:10 Pain Scale: Adult iw 21:14 Pain Scale: Adult iw 22:39 Pain Scale: Adult bm8 [place] Coma Score: 20:10 Eye Response: spontaneous(4). Motor Response: obeys commands(6). Verbal Response: iw oriented(5). Total: 15. 21:14 Eye Response: spontaneous(4). Motor Response: obeys commands(6). Verbal Response: iw oriented(5). Total: 15. 22:39 Eye Response: spontaneous(4). Motor Response: obeys commands(6). Verbal Response: bm8 oriented(5). Total: 15. ED Course: 19:15 Patient arrived in ED. gm2 19:36 Triage completed. tm6 19:43 Zarina Mcfarland PA-C is [facility]. sb4 19:43 Calvin rCow MD is Attending Physician. sb4 19:52 Arm band placed on right wrist. tm6 19:52 EKG completed in triage. Results shown to MD. tm6 20:04 Yelena Kaplan, RN is Primary Nurse. iw 20:10 Patient has correct armband on for positive identification. Placed in gown. Bed in low iw position. Call light in reach. Side rails up X 1. Adult w/ patient. Client placed on continuous cardiac and pulse oximetry monitoring. NIBP monitoring applied. monitoring analyst on. Pulse ox on. NIBP on. Door closed. Warm blanket given. Pillow given. Verbal reassurance given. Head of bed elevated. 20:10 No provider procedures requiring assistance completed. Initial lab(s) drawn, by me, iw sent to lab. EKG done, by ED staff, reviewed by Zarina Mcfarland PA-C. Inserted saline lock: 22 gauge in left antecubital area, using aseptic technique. Blood collected. Flushed with 10 mL NS Missed attempt(s): 20 gauge in right forearm. Bleeding controlled, band aid applied, catheter tip intact. Patient maintains SpO2 saturation greater than 95% on room air. 20:13 XRAY Chest (1 view) In Process Unspecified. EDMS 21:28 Zheng Zhao MD is Hospitalizing Provider. sb4 22:39 Provided Education on: need for admit. bm8 22:39 Patient admitted, IV remains in place. bm8 Administered Medications: 20:10 Drug: Metoprolol IVP 5 mg IVP every 5 minutes; Hold for SBP < 100 or HR < 60. x3 Route: iw IVP; Site: left antecubital; 20:15 Drug: Metoprolol IVP 5 mg IVP every 5 minutes; Hold for SBP < 100 or HR < 60. x3 Route: iw IVP; Site: left antecubital; 22:41 Follow up: Response: No adverse reaction bm8 21:40 Drug: NS 0.9% IV 1000 ml IV at 1 bolus Per protocol; 1000 mL bolus Route: IV; Rate: 1 iw bolus; Site: left antecubital; 22:41 Follow up: Response: No adverse reaction; IV Status: Completed infusion; IV Intake: bm8 1000ml 21:40 Drug: Magnesium Sulfate IVPB 1 grams IVPB once over 1 hrs Route: IVPB; Infused Over: 1 iw hrs; Site: left antecubital; 22:41 Follow up: Response: No adverse reaction; IV Status: Completed infusion; IV Intake: bm8 100ml Medication: 20:10 VIS not applicable for this client. iw Intake: 22:41 IV: 100ml; Total: 100ml. bm8 22:41 IV: 1000ml; Total: 1100ml. bm8 Outcome: 21:28 Decision to Hospitalize by Provider. sb4 23:31 Admitted to Tele accompanied by nurse, via wheelchair, with chart, bm8 23:31 Condition: stable 23:31 Instructed on the need for admit, Demonstrated understanding of instructions, follow-up care, 23:32 Patient left the ED. bm8 Signatures: Dispatcher [employer] EDYelena Egan RN RN iw Brown, Sophia, PA-C PA-C sb4 Nanci Soto gm2 [place] Mae RN RN tm6 Johnny Haile RN RN bm8 Corrections: (The following items were deleted from the chart) 19:38 19:36 Allergies: Lipitor; tm6 tm6 19:38 19:36 Allergies: Morphine; tm6 tm6 19:38 19:36 PMHx: diabetes mellitus; tm6 tm6 19:38 19:36 PMHx: Hypercholesterolemia; tm6 tm6 19:38 19:36 PMHx: Hypertensive disorder; tm6 tm6 19:38 19:36 PMHx: Hypothyroidism; tm6 tm6 19:38 19:36 PMHx: metabolic syndrome; tm6 tm6 19:38 19:36 PMHx: Sleep Apnea; tm6 tm6 19:38 19:36 PMHx: Hyperthyroidism; tm6 tm6 19:38 19:36 PSHx: None; tm6 tm6
--- NOTE | 2023-10-23 21:29 | EDPHYS ---
Physician Documentation [facility] Name: Gloria Olivares Age: 67 yrs Sex: Female : 1955 Arrival Date: 10/23/2023 Time: 19:09 Bed 8 Private MD: ED Physician Calvin Crow HPI: 10/22 21:41 This 67 yrs old Female presents to ER via Ambulatory with complaints of High Blood sb4 Pressure, heart palpitations. 21:41 Patient states that she started feeling a fluttering in her chest this afternoon and sb4 decided to check her vital signs. She noted that she was very hypertensive- 170s/120s and heart was elevated in the 120s. She states that her blood pressure and heart rate are usually within normal limits. She states that she did have an episode of A-fib several years ago and has not had issues with this since. She sees Dr. Kingsley regularly and had a negative stress test a few months ago. Historical: - Allergies: 19:36 Morphine; tm6 19:36 Lipitor; tm6 - PMHx: 19:36 Diabetes mellitus; Hypercholesterolemia; Hypertensive disorder; Hypothyroidism; Sleep tm6 apnea; - PSHx: 19:36 Total abdominal hysterectomy; Cholecystectomy; section; tm6 - Immunization history:: Client reports receiving the 2nd dose of the Covid vaccine. - Infectious Disease History:: Denies. - Social history:: Smoking status: Patient denies any tobacco usage or history of. Patient/guardian denies using alcohol. ROS: 21:41 Constitutional: Negative for fever, chills, and weight loss, sb4 21:41 Cardiovascular: Positive for palpitations, 21:41 All other systems are negative, Exam: 21:41 Constitutional: This is a well developed, well nourished patient who is awake, alert, sb4 and in no acute distress. Head/Face: Normocephalic, atraumatic. Eyes: Extra-ocular motions intact. Periorbital areas with no swelling, redness, or edema. ENT: Mucous membranes moist. Respiratory: Lungs have equal breath sounds bilaterally, clear to auscultation and percussion. No rales, rhonchi or wheezes noted. No increased work of breathing, no retractions or nasal flaring. Abdomen/GI: Soft, non-tender, no distension. Skin: Warm, dry with normal turgor. Normal color with no rashes, no lesions, and no evidence of cellulitis. 21:41 Cardiovascular: Rate: tachycardic, Rhythm: irregularly irregular, Pulses: no pulse deficits are appreciated, Vital Signs: 19:33 BP 157 / 119; Pulse 128; Resp 19; Temp 98.7(O); Pulse Ox 99% on R/A; Weight 88.45 kg; tm6 Height 5 ft. 1 in. ; Pain 0/10; 19:34 Pulse 105; tm6 20:10 BP 153 / 114; Pulse 84; Resp 20; Temp 98.7; Pulse Ox 98% ; Pain 0/10; iw 21:14 BP 126 / 93; Pulse 80; Resp 20; Temp 98.7; Pulse Ox 97% ; Pain 0/10; iw 22:39 BP 126 / 80; Pulse 78; Resp 18; Temp 98.7; Pulse Ox 98% ; Pain 0/10; bm8 19:33 Body Mass Index 36.84 (88.45 kg, 154.94 cm) tm6 19:33 Pain Scale: Adult tm6 20:10 Pain Scale: Adult iw 21:14 Pain Scale: Adult iw 22:39 Pain Scale: Adult bm8 Sergio Coma Score: 20:10 Eye Response: spontaneous(4). Motor Response: obeys commands(6). Verbal Response: iw oriented(5). Total: 15. 21:14 Eye Response: spontaneous(4). Motor Response: obeys commands(6). Verbal Response: iw oriented(5). Total: 15. 22:39 Eye Response: spontaneous(4). Motor Response: obeys commands(6). Verbal Response: bm8 oriented(5). Total: 15. MDM: 19:45 Patient medically screened. sb4 21:43 Data reviewed: vital signs, nurses notes, lab test result(s), EKG, radiologic studies, sb4 and as a result, I will admit patient. Consideration of Admission/Observation Patient was admitted/placed on observation. Counseling: I had a detailed discussion with the patient and/or guardian regarding the historical points, exam findings, and any diagnostic results supporting the discharge/admit diagnosis, the presence of at least one elevated blood pressure reading (>120/80) during this emergency department visit, lab results, radiology results, the need for further work-up and treatment in the hospital. 10/22 19:54 Order name: Basic Metabolic Panel; Complete Time: 22:07 sb4 10/22 19:54 Order name: CBC with Diff; Complete Time: 20:28 sb4 10/22 19:54 Order name: LFT's; Complete Time: 22:07 sb4 10/22 19:54 Order name: Magnesium; Complete Time: 22:07 sb4 10/22 19:54 Order name: NT PRO-BNP; Complete Time: 22:07 sb4 10/22 19:54 Order name: PT-INR; Complete Time: 20:14 sb4 10/22 19:54 Order name: Troponin HS; Complete Time: 22:07 sb4 10/22 22:37 Order name: Urinalysis w/ reflexes EDMS 10/22 22:37 Order name: CBC with Automated Diff EDMS 10/22 22:38 Order name: CBC with Automated Diff EDMS 10/22 22:38 Order name: Comprehensive Metabolic Panel EDMS 10/22 22:38 Order name: Comprehensive Metabolic Panel EDMS 10/22 19:54 Order name: XRAY Chest (1 view); Complete Time: 20:22 sb4 10/22 22:41 Order name: Echo with Doppler EDMS 10/22 22:37 Order name: CONS Physician Consult EDAR 10/22 19:54 Order name: Cardiac monitoring; Complete Time: 20:04 sb4 10/22 19:54 Order name: EKG - Nurse/Tech; Complete Time: 20:04 sb4 10/22 19:54 Order name: IV Saline Lock; Complete Time: 20:04 sb4 10/22 19:54 Order name: Labs collected and sent; Complete Time: 20:05 sb4 10/22 19:54 Order name: O2 Per Protocol; Complete Time: 20:05 sb4 10/22 19:54 Order name: O2 Sat Monitoring; Complete Time: 20:05 sb4 EC:57 Rate is 120 beats/min. Rhythm is irregularly irregular, A fib. QRS interval is normal sb4 at 72 msec. QT interval is normal at 332 msec. No Q waves. T waves are Normal. No ST changes noted. Clinical impression: Atrial Fibrillation and atrial fibrillation with RVR. Interpreted by me. Reviewed by me. Administered Medications: 20:10 Drug: Metoprolol IVP 5 mg IVP every 5 minutes; Hold for SBP < 100 or HR < 60. x3 Route: iw IVP; Site: left antecubital; 20:15 Drug: Metoprolol IVP 5 mg IVP every 5 minutes; Hold for SBP < 100 or HR < 60. x3 Route: iw IVP; Site: left antecubital; 22:41 Follow up: Response: No adverse reaction bm8 21:40 Drug: NS 0.9% IV 1000 ml IV at 1 bolus Per protocol; 1000 mL bolus Route: IV; Rate: 1 iw bolus; Site: left antecubital; 22:41 Follow up: Response: No adverse reaction; IV Status: Completed infusion; IV Intake: bm8 1000ml 21:40 Drug: Magnesium Sulfate IVPB 1 grams IVPB once over 1 hrs Route: IVPB; Infused Over: 1 iw hrs; Site: left antecubital; 22:41 Follow up: Response: No adverse reaction; IV Status: Completed infusion; IV Intake: bm8 100ml Disposition Summary: 10/23/23 21:28 Hospitalization Ordered Notes: Hospitalization Status: Observation sb4 Provider: Zheng Zhao sb4 Condition: Fair sb4 Problem: new sb4 Symptoms: have improved sb4 Bed/Room Type: Standard sb4 Location: Telemetry/MedSurg (Inpatient)(10/23/23 21:40) Room Assignment: 403(10/23/23 22:49) sp Diagnosis - Unspecified atrial fibrillation - new onset sb4 Forms: - Medication Reconciliation Form sb4 - SBAR form sb4 - Leadership Thank You Letter sb4 Addendum: 10/25/2023 19:48 Co-signature as Attending Physician, Calvin Crow MD I reviewed the patient's care r t provided by the Advanced Practice Provider and agree with the diagnosis and treatment plan. Signatures: Dispatcher [employer] Marjorie Medeiros RN RN kl Pinkerton, Shawna sp Williams, Irene, RN RN iw Brown, Sophia, PAEveC PA-C sb4 Calvin Crow MD MD rt [place] Mae RN RN tm6 McDonald, Brad RN bm8 Corrections: (The following items were deleted from the chart) 10/22 19:38 19:36 Allergies: Lipitor; tm6 tm6 19:38 19:36 Allergies: Morphine; tm6 tm6 19:38 19:36 PMHx: diabetes mellitus; tm6 tm6 19:38 19:36 PMHx: Hypercholesterolemia; tm6 tm6 19:38 19:36 PMHx: Hypertensive disorder; tm6 tm6 19:38 19:36 PMHx: Hypothyroidism; tm6 tm6 19:38 19:36 PMHx: metabolic syndrome; tm6 tm6 19:38 19:36 PMHx: Sleep Apnea; tm6 tm6 19:38 19:36 PMHx: Hyperthyroidism; tm6 tm6 19:38 19:36 PSHx: None; tm6 tm6 19:54 19:54 BASIC METABOLIC PANEL+C.LAB.BRZ ordered. EDMS EDMS 19:54 19:54 CBC+H.LAB.BRZ ordered. EDMS EDMS 19:54 19:54 HEPATIC FUNCTION+C.LAB.BRZ ordered. EDMS EDMS 19:54 19:54 MAGNESIUM+C.LAB.BRZ ordered. EDMS EDMS 19:54 19:54 PROBNP+C.LAB.BRZ ordered. EDMS EDMS 19:54 19:54 PROTIME (+INR)+COAG.LAB.BRZ ordered. EDMS EDMS 19:54 19:54 Troponin High Sensitivity+C.LAB.BRZ ordered. EDMS EDMS 19:54 19:54 Chest Single View+RAD.RAD.BRZ ordered. EDMS EDMS 21:40 21:28 Telemetry/MedSurg (observation) sb4 kl 21:40 21:28 sb4 kl 22:49 21:40 kl sp
[2023-10-23 22:06] LABS: Alkaline Phosphatase 95 U/L (45-117)
[2023-10-23] MEDS ORDERED: ACETAMINOPHEN 325 MG TABLET PO PRN (22:30)
[2023-10-23] MEDS ORDERED: ONDANSETRON 4 MG/2 ML VIAL IV PRN (22:30)
--- NOTE | 2023-10-23 22:46 | P.HP ---
Certification for Inpatient Patient admitted to: Inpatient With expected LOS: >2 Midnights Practitioner: I am a practitioner with admitting privileges, knowledge of patient current condition, hospital course, and medical plan of care. Services: Services provided to patient in accordance with Admission requirements found in Title 42 Section 412.3 of the Code of Federal Regulations Patient History Date of Service: 10/23/23 Reason for admission: Afib w RVR History of Present Illness: 67-year-old female with past medical history of Diabetes mellitus; Hypercholesterolemia; Hypertensive disorder; Hypothyroidism; Sleep apnea brought to ER with palpitation. Patient denies any fever chills. Denies any chest pain or shortness of breath . Denies any nausea vomiting or diarrhea. No sick contacts Symptom has been progressively getting worse and she was brought to ER She was assessed in the ER and was found to have A-fib with RVR and was admitted for further management Allergies atorvastatin calcium [From Lipitor] Allergy (Verified 01/09/15 14:22) sciatica problems morphine Allergy (Verified 01/09/15 14:22) Hives Home medications list reviewed: Yes Home Medications: Aspirin [Aspirin EC 81 MG] 81 mg PO DAILY 12/28/14 Cyanocobalamin [Vitamin B-12*] 1,000 mcg PO DAILY 12/28/14 Omeprazole [Prilosec] 20 mg PO DAILY 12/28/14 Ramipril [Altace] 10 mg PO BID 12/28/14 Levofloxacin [Levaquin] 500 mg PO DAILY #9 tablet 02/01/15 Thyroid,Pork [Thyroid] 90 mg PO DAILY 06/09/23 - Past Medical/Surgical History Diabetic: No Past Medical History: Reviewed- Non-Contributory -: HTN -: HYPOTHROIDISM -: ACID REFLUX -: Osteoarthritis -: Diabetes mellitus type [id number] -: Hyperlipidemia Past Surgical History: Reviewed- Non-Contributory -: HYSTERECTOMY -: TONSILLECTOMY -: MARIA VICTORIA -: C-SECTIONS X 2 Psychosocial/ Personal History: Lives at home with 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 family, 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 - Social History Smoking Status: Never smoker Alcohol use: No CD- Drugs: No Caffeine use: Yes Review of Systems 10-point ROS is otherwise unremarkable Physical Examination - Vital Signs Temperature: 98.2 F Blood Pressure: 162/76 Pulse: 92 Respirations: 18 Pulse Ox (%): 94 - Physical Exam General: Alert, In no apparent distress, Oriented x3 HEENT: Atraumatic, Normocephalic Neck: Supple, JVD not distended Respiratory: Clear to auscultation bilaterally, Normal air movement Cardiovascular: No edema, Irregular heart rate/rhythm Capillary refill: <2 Seconds Gastrointestinal: Soft and benign, W/out hepatosplenomegaly Musculoskeletal: No clubbing, No swelling Integumentary: No rashes, No breakdown Neurological: Normal gait, Normal speech, Normal strength at 5/5 x4 extr, Cranial nerves 3-12 intact Lymphatics: No axilla or inguinal lymphadenopathy - Studies Laboratory Data (last 24 hrs) 10/23/23 10/23/23 10/23/23 20:04 20:04 20:04 WBC 9.20 Hgb 13.8 Hct 41.8 Plt Count 314 PT 12.1 INR 1.08 Sodium 140 Potassium 4.7 BUN 19 H Creatinine 0.87 Glucose 112 H Magnesium 2.2 Total Bilirubin 0.6 AST 17 ALT 26 Alkaline Phosphatase 95 Assessment and Plan - Plan Afib with RVR Rate controlled Monitor closely on telemetry Will get an echocardiogram Cardiology consult Metoprolol IV as needed for rate control Hypertension Antihypertensives titrated Continue home medications and titrate as needed Diabetes Insulin sliding scale Accu-Chek before every meal and at bedtime Hypothyroidism continue home medications Will get a TSH level Titrate thyroid medications as needed GI/DVT prophylaxis Advanced directive full code Discharge Plan: Home Plan to discharge in: 48 Hours - Advance Directives Does patient have a Living Will: No Does patient have a Durable POA for Healthcare: No - Code Status/Comfort Care Code Status: Full Code Time Spent Managing Pts Care (In Minutes): 48
[2023-10-24 00:16] VITALS: O2SAT 98
[2023-10-24 00:40] VITALS: BMI 38.3
[2023-10-24] MEDS ORDERED: METOPROLOL TARTRATE 5 MG/5 ML INJ IV PRN (02:00)
[2023-10-24 06:39] LABS: Absolute Eosinophils 0.1 K/uL (0-0.5); Absolute Lymphocytes (CBC) 3.8 K/uL (0.7-4.9); Absolute Monocytes 0.7 K/uL (0.1-1.3); Absolute Neutrophil 3.5 K/uL (1.8-8.0); Basophils % 0.5 % (0-1.3); Eosinophils % 1.5 % (0-4.4); Hematocrit 39.7 % (36.0-45.0); Hemoglobin 12.6 g/dL (12.0-15.0); Lymphocytes % 46.6 % (15.3-44.8); MCH 26.4 pg (27.0-35.0); MCHC 31.8 g/dL (32.0-36.0); MPV 9.5 fL (7.6-11.3); Monocytes % 8.3 % (3.3-12.3); Neutrophils % 43.1 % (41.7-73.7); Nucleated Red Blood Cells % 0.1 % (0-0); Platelets 253 thou/uL (152-406); RBC Red Blood Cell Count 4.78 M/uL (3.86-4.86); Red Cell Distribution Width 15.7 % (12.1-15.2)
[2023-10-24 06:57] LABS: Albumin 3.4 g/dL (3.4-5.0); Albumin/Globulin Ratio 1.2 (1.1-1.8); Anion Gap 7.1 mEq/L (5.0-15.0); Bilirubin Total 0.8 mg/dL (0.2-1.0); Globulin 2.8 g/dL (2.3-3.5); Potassium 4.1 mEq/L (3.5-5.1); Protein, Total 6.2 g/dL (6.4-8.2)
--- NOTE | 2023-10-24 07:00 | P.PN ---
Date of Service: 10/24/23 Subjective admitted with Afib RVR Bradycardia heart rate 56-63 on the monitor, no reported chest pain, O2 sats 98% on room air Review of Systems 10-point ROS is otherwise unremarkable Physical Examination - Vital Signs Temperature: 98.2 F Blood Pressure: 162/76 Pulse: 92 Respirations: 18 Pulse Ox (%): 94 - Physical Exam General: Alert, In no apparent distress, Oriented x3 HEENT: Atraumatic, Normocephalic Neck: Supple, JVD not distended Respiratory: Clear to auscultation bilaterally, Normal air movement Cardiovascular: No edema, Irregular heart rate/rhythm Capillary refill: <2 Seconds Gastrointestinal: Soft and benign, W/out hepatosplenomegaly Musculoskeletal: No clubbing, No swelling Integumentary: No rashes, No breakdown Neurological: Normal gait, Normal speech, Normal strength at 5/5 x4 extr, Cranial nerves 3-12 intact Lymphatics: No axilla or inguinal lymphadenopathy Assessment and Plan - Plan Afib with RVR Rate controlled Monitor closely on telemetry Will get an echocardiogram Cardiology consult Metoprolol IV as needed for rate control Hypertension Antihypertensives titrated Continue home medications and titrate as needed Diabetes Insulin sliding scale Accu-Chek before every meal and at bedtime Hypothyroidism continue home medications Will get a TSH level Titrate thyroid medications as needed GI/DVT prophylaxis Advanced directive full code Discharge Plan: Home Plan to discharge in: 48 Hours - Advance Directives Does patient have a Living Will: No Does patient have a Durable POA for Healthcare: No - Code Status/Comfort Care Code Status: Full Code Time Spent Managing Pts Care (In Minutes): 25 <Tena Hathaway - Last Filed: 10/25/23 16:06> Chart has been reviewed. Events of the last 24 hours have been noted. Case discussed with HIPOLITO. I performed a substantial part of the MDM during this patient's care today. I personally made or approved the documented management plan and acknowledge its risk of complications. I agree with the findings and documentation provided in the HIPOLITO's notes Continue with medication for rate control. Continue with beta-corwin therapy and anticoagulation. Arrange for discharge home. <Gamal Alvares - Last Filed: 11/12/23 02:23>
[2023-10-24] MEDS: METOPROLOL TAR 25 MG TAB PO SCH (07:21)
[2023-10-24 10:26] LABS: Specific Gravity 1.017 (1.005-1.030); Sqamous Epithelial <5 /HPF (None Seen); Urine Bacteria None Seen /HPF (<20); Urine Bilirubin NEGATIVE (Negative); Urine Blood Negative (Negative); Urine Clarity Turbid (Clear); Urine Color Yellow (Yellow); Urine Culture Reflex Order NOT NEEDED; Urine Glucose NEGATIVE (Negative); Urine Ketones NEGATIVE (Negative); Urine Microscopic Reflex YN ORDER UMIC; Urine Mucus Slight /HPF (None Seen); Urine Nitrite NEGATIVE (Negative); Urine Protein NEGATIVE (Negative); Urine RBC <5 /HPF (None Seen); Urine Urobilinogen Normal (Normal); Urine WBC <5 /HPF (<5); Urine pH 5.5 (5.0-7.0)
[2023-10-24 12:34] VITALS: BP 129/73; TEMP 97.6
[2023-10-24] MEDS: ENOXAPARIN 40 MG/0.4 ML SQ SCH (13:01)
--- NOTE | 2023-10-24 13:54 | EKG ---
Test Date: 2023-10-23 Test Time: 19:44:01 Preschool Paraprofessional: CLARIBEL MEASUREMENT RESULTS: Intervals: Rate: 120 SD: QRSD: 72 QT: 332 QTc: 469 [place]: P: SD: QRS: -1 T: 2 INTERPRETIVE STATEMENTS: Sinus tachycardia Cannot rule out Anterior infarct, age undetermined Abnormal ECG Compared to ECG 06/09/2023 02:54:00 Myocardial infarct finding now present Sinus bradycardia no longer present Electronically Signed On 10-24-23 13:54:02 CDT by Zachary Donald
--- NOTE | 2023-10-24 13:55 | P.CNS ---
Date of Consult: 10/24/23 Chief Complaint: Afib w RVR History of Present Illness: Patient with PMH of HTN, presented with palpitations that she felt yesterday after drinking some cold drink, denies any chest pain, no sob, no SOARES, no syncope. Allergies atorvastatin calcium [From Lipitor] Allergy (Verified 10/24/23 04:16) sciatica problems morphine Allergy (Verified 10/24/23 04:16) Hives Home medications list reviewed: Yes Home Medications: Cyanocobalamin [Vitamin B-12*] 1,000 mcg PO DAILY 12/28/14 Omeprazole [Prilosec] 20 mg PO DAILY 12/28/14 Ramipril [Altace] 10 mg PO BID 12/28/14 Thyroid,Pork [Thyroid] 90 mg PO DAILY 06/09/23 Aspirin 325 mg PO DAILY 10/24/23 Carvedilol [Coreg] 25 mg PO BID 10/24/23 Ezetimibe [Zetia] 10 mg PO DAILY 10/24/23 Magnesium Oxide [Magnesium] 400 mg PO BID 10/24/23 - Past Medical/Surgical History Diabetic: No -: HTN -: HYPOTHROIDISM -: ACID REFLUX -: Osteoarthritis -: Diabetes mellitus type [id number] -: Hyperlipidemia -: HYSTERECTOMY -: TONSILLECTOMY -: MARIA VICTORIA -: C-SECTIONS X 2 Psychosocial/ Personal History: Lives at home with her family, 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 moist/pink, EOMI, Sclerae nonicteric Neck: Supple, 2+ carotid pulse no bruit, No LAD, Without JVD or thyroid ab normality Respiratory: Clear to auscultation bilaterally, Normal air movement Cardiovascular: Regular rate/rhythm, Normal S1 S2 Gastrointestinal: Normal bowel sounds, No tenderness Musculoskeletal: No tenderness Integumentary: No rashes Neurological: Normal gait, Normal speech, Normal tone, Normal affect Lymphatics: No axilla or inguinal lymphadenopathy Laboratory Data (last 24 hrs) 10/23/23 10/23/23 10/23/23 20:04 20:04 20:04 WBC 9.20 Hgb 13.8 Hct 41.8 Plt Count 314 PT 12.1 INR 1.08 Sodium 140 Potassium 4.7 BUN 19 H Creatinine 0.87 Glucose 112 H Magnesium 2.2 Total Bilirubin 0.6 AST 17 ALT 26 Alkaline Phosphatase 95 - Problems (1) Atrial fibrillation Current Visit: Yes Status: Acute Plan: EKG reviewed with lot of artifact, i can see P waves, most likely sinus tachycardia. no patient in sinus rhythm with HR in the 60s. Patient will need outpatient 30 day event monitor which can be done through her field worker. meanwhile continue Lopressor 12.5 mg po BID D/C outpatient coreg. Continue ASA 81 mg daily (2) HTN (hypertension) Current Visit: Yes Status: Acute Plan: metoprolol and ramipril (3) HLD (hyperlipidemia) Current Visit: Yes Status: Acute Plan: continue statins
--- NOTE | 2023-10-24 14:03 | P.DS ---
Admission Date: 10/23/23 Discharge Date: 10/24/23 Reason for Admission: Afib w RVR Brief History of Present Illness: 67-year-old female with past medical history of Diabetes mellitus; Hypercholesterolemia; Hypertensive disorder; Hypothyroidism; Sleep apnea brought to ER with palpitation. Patient denies any fever chills. Denies any chest pain or shortness of breath . Denies any nausea vomiting or diarrhea. No sick contacts Symptom has been progressively getting worse and she was brought to ER She was assessed in the ER and was found to have A-fib with RVR and was admitted for further management - Physical Exam General: Alert, In no apparent distress, Oriented x3 HEENT: Atraumatic, Normocephalic Neck: Supple, JVD not distended Respiratory: Clear to auscultation bilaterally, Normal air movement Cardiovascular: No edema, Irregular heart rate/rhythm Capillary refill: <2 Seconds Gastrointestinal: Soft and benign, W/out hepatosplenomegaly Musculoskeletal: No clubbing, No swelling Integumentary: No rashes, No breakdown Neurological: Normal gait, Normal speech, Normal strength at 5/5 x4 extr, Cranial nerves 3-12 intact Lymphatics: No axilla or inguinal lymphadenopathy Hospital Course: 67-year-old female with past medical history of Diabetes mellitus; Hypercholesterolemia; Hypertensive disorder; Hypothyroidism; Sleep apnea brought to ER with palpitation. He was seen in the emergency, given IV Lopressor, she was evaluated by cardiology, she is tolerating diet, plan to discharge home. Follow-up with cardiology in 2 weeks. Assessment A-fib RVR treated with IV Lopressor in the ER Symptoms likely related to sinus tachycardia, follow-up with cardiology for Holter monitor with her personal cardiology in 2 weeks Home medication Lopressor 12.5 p.o. twice daily discontinue Coreg Aspirin 81 mg daily Continue ramipril Antilipid Lipitor Continue home medicines as previously prescribed GOAL: Clear understanding of disease process INSTRUCTIONS: Physician Discharge Instructions: -Follow-up with PCP in 1 to 2 weeks -Follow-up with cardiology in 2 weeks -Please call Dr. Alvares at [phone] if any questions regarding hospital stay -Please call nursing station at [phone] if any nursing or medication questions -Return to the emergency room if symptoms worsen Diet: ADA, low sodium Activity: Fall precautions <Tena Hathaway - Last Filed: 10/24/23 14:19> Admission Date: 10/23/23 Discharge Date: 10/24/23 Hospital Course: Chart has been reviewed. Events of the last 24 hours have been noted. Case discussed with HIPOLITO. I performed a substantial part of the MDM during this patient's care today. I personally made or approved the documented management plan and acknowledge its risk of complications. I agree with the findings and documentation provided in the HIPOLITO's notes <Gamal Alvares - Last Filed: 11/12/23 02:24> Disposition: ROUTINE DISCHARGE Discharge Condition: GOOD Vital Signs/Physical Exam: Temp Pulse Resp BP Pulse Ox 97.6 F 56 15 129/73 98 10/24/23 12:00 10/24/23 12:00 10/24/23 12:00 10/24/23 12:00 10/24/23 12:00 Laboratory Data at Discharge: WBC 8.10 thou/uL (4.3-10.9) 10/24/23 05:54 Hgb 12.6 g/dL (12.0-15.0) D 10/24/23 05:54 Hct 39.7 % (36.0-45.0) 10/24/23 05:54 Plt Count 253 thou/uL (152-406) 10/24/23 05:54 PT 12.1 SECONDS (9.4-12.5) 10/23/23 20:04 INR 1.08 10/23/23 20:04 Sodium 140 mEq/L (136-145) 10/24/23 05:54 Potassium 4.1 mEq/L (3.5-5.1) 10/24/23 05:54 BUN 16 mg/dL (7-18) 10/24/23 05:54 Creatinine 0.81 mg/dL (0.55-1.02) 10/24/23 05:54 Glucose 114 mg/dL (74-106) H 10/24/23 05:54 Magnesium 2.2 mg/dL (1.6-2.4) 10/23/23 20:04 Total Bilirubin 0.8 mg/dL (0.2-1.0) 10/24/23 05:54 AST 14 U/L (15-37) L 10/24/23 05:54 ALT 21 U/L (13-56) 10/24/23 05:54 Alkaline Phosphatase 79 U/L (45-117) 10/24/23 05:54 <Tena Hathaway - Last Filed: 10/24/23 14:19> Vital Signs/Physical Exam: Temp Pulse Resp BP Pulse Ox 97.6 F 56 15 129/73 98 10/24/23 12:00 10/24/23 12:00 10/24/23 12:00 10/24/23 12:00 10/24/23 12:00 Laboratory Data at Discharge: WBC 8.10 thou/uL (4.3-10.9) 10/24/23 05:54 Hgb 12.6 g/dL (12.0-15.0) D 10/24/23 05:54 Hct 39.7 % (36.0-45.0) 10/24/23 05:54 Plt Count 253 thou/uL (152-406) 10/24/23 05:54 PT 12.1 SECONDS (9.4-12.5) 10/23/23 20:04 INR 1.08 10/23/23 20:04 Sodium 140 mEq/L (136-145) 10/24/23 05:54 Potassium 4.1 mEq/L (3.5-5.1) 10/24/23 05:54 BUN 16 mg/dL (7-18) 10/24/23 05:54 Creatinine 0.81 mg/dL (0.55-1.02) 10/24/23 05:54 Glucose 114 mg/dL (74-106) H 10/24/23 05:54 Magnesium 2.2 mg/dL (1.6-2.4) 10/23/23 20:04 Total Bilirubin 0.8 mg/dL (0.2-1.0) 10/24/23 05:54 AST 14 U/L (15-37) L 10/24/23 05:54 ALT 21 U/L (13-56) 10/24/23 05:54 Alkaline Phosphatase 79 U/L (45-117) 10/24/23 05:54 <Gamal Alvares - Last Filed: 11/12/23 02:24> Diet: ADA Activity: Fall precautions Time spent managing pt's care (in minutes): 45 <Tena Hathaway - Last Filed: 10/24/23 14:19> <Gamal Alvares - Last Filed: 11/12/23 02:24> Home Medications: Cyanocobalamin [Vitamin B-12*] 1,000 mcg PO DAILY 12/28/14 Omeprazole [Prilosec] 20 mg PO DAILY 12/28/14 Ramipril [Altace] 10 mg PO BID 12/28/14 Thyroid,Pork [Thyroid] 90 mg PO DAILY 06/09/23 Aspirin 325 mg PO DAILY 10/24/23 Ezetimibe [Zetia*] 10 mg PO DAILY 10/24/23 Magnesium Oxide [Magnesium] 400 mg PO BID 10/24/23 Metoprolol Tartrate 12.5 mg PO BID #60 tab 10/24/23 New Medications: Metoprolol Tartrate 12.5 mg PO BID #60 tab Physician Discharge Instructions: -DC IV and DC home -Follow-up with PCP in 1 to 2 weeks -Follow-up with Cardiology in 1 to 2 weeks -Please call Dr. Alvares at [phone] if any questions regarding hospital stay -Please call nursing station at [phone] if any nursing or medication questions -Return to the emergency room if symptoms worsen Followup: Pipo Wakefield FNP [Primary Care Provider] - Zachary Donald MD [ACTIVE - CAN ADMIT] -
== END 2023-10-24 15:00 | disposition home or self-care (01) | DRG 310 ==
LOC: ER 19:09 → 4TH 22:30
PROVIDERS: ADMIT Family Medicine; ATTEND Hospitalist
DX: I48.91 Unspecified atrial fibrillation (principal); E11.9 Type 2 diabetes mellitus without complications; E03.9 Hypothyroidism, unspecified; I10 Essential (primary) hypertension; E78.00 Pure hypercholesterolemia, unspecified; K21.9 Gastro-esophageal reflux disease without esophagitis; R00.0 Tachycardia, unspecified; Z88.5 Allergy status to narcotic agent; Z88.8 Allergy status to other drugs, medicaments and biological substances; Z79.82 Long term (current) use of aspirin; Z90.49 Acquired absence of other specified parts of digestive tract; Z79.899 Other long term (current) drug therapy; Z90.710 Acquired absence of both cervix and uterus
CPT/HCPCS: 36415; 71045; 80048; 80053; 80076; 81001; 83735; 83880; 84484; 85025; 85610; 93005; 96365; 96375; 99285; J1650; J3475; J7030